=== PATIENT | male | born 1995 | race Caucasian/White ===

== ENCOUNTER 2018-01-21 17:54 | Emergency (ER) | payer BC, OTHER ==
--- NOTE | 2018-01-21 18:49 | UC ---
Throat Pain/Nasal Olegario HPI - HPI Summary HPI Summary: This is a 22-year-old male with a 3 day history of fever or chills mild headache and sore throat. He has been able to tolerate both foods and liquids despite his sore throat. No nausea vomiting or diarrhea. He denies any abdominal pain. He has never had mononucleosis. He has not missed any work despite his illness. - History of Current Complaint Chief Complaint: UCGeneralIllness Stated Complaint: SORE THROAT/FEVER Time Seen by Provider: 01/21/18 18:48 Hx Obtained From: Patient Onset/Duration: Gradual Onset, Lasting Days Severity: Severe Pain Intensity: 7 Pain Scale Used: 0-10 Numeric - Epiglottits Risk Factors Epiglottis Risk Factors: Negative - Allergies/Home Medications Allergies/Adverse Reactions: Allergies Allergy/AdvReac Type Severity Reaction Status Date / Time No Known Allergies Allergy Verified 01/21/18 18:13 Home Medications: Home Medications Ibuprofen 400 mg PO Q8H 01/21/18 [History Confirmed 01/21/18] PMH/Surg Hx/FS Hx/Imm Hx Previously Healthy: Yes - Surgical History Surgical History: None - Family History Known Family History: Positive: Cardiac Disease - Social History Alcohol Use: Occasionally Substance Use Type: None Smoking Status (MU): Never Smoked Tobacco Review of Systems Constitutional: Fever, Chills Skin: Negative Eyes: Negative ENT: Sore Throat Respiratory: Negative Cardiovascular: Negative Gastrointestinal: Negative Genitourinary: Negative Motor: Negative Neurovascular: Negative Musculoskeletal: Negative Neurological: Negative Psychological: Negative Is Patient Immunocompromised?: No All Other Systems Reviewed And Are Negative: Yes Physical Exam Triage Information Reviewed: Yes Appearance: Well-Appearing, No Pain Distress, Well-Nourished Vital Signs: Initial Vital Signs Temp 103.1 F 01/21/18 18:10 Pulse 96 01/21/18 18:10 Resp 16 01/21/18 18:10 BP 164/90 01/21/18 18:10 Pulse Ox 99 01/21/18 18:10 Vital Signs Reviewed: Yes Eyes: Positive: Conjunctiva Clear ENT: Positive: Hearing grossly normal, Pharyngeal erythema, Tonsillar swelling, Tonsillar exudate, Uvula midline. Negative: Nasal congestion, Nasal drainage, Trismus, Muffled voice, Hoarse voice, Sinus tenderness Dental Exam: Normal Neck: Positive: Supple, Nontender, Enlarged Nodes @ - ant cervical Respiratory: Positive: Lungs clear, Normal breath sounds, No respiratory distress, No accessory muscle use Cardiovascular: Positive: RRR, No Murmur Abdomen Description: Positive: Nontender, No Organomegaly. Negative: CVA Tenderness (R), CVA Tenderness (L) Bowel Sounds: Positive: Present Musculoskeletal: Positive: ROM Intact, No Edema Neurological: Positive: Alert Psychological Exam: Normal Skin Exam: Normal Diagnostics - Laboratory Diagnostic Studies Completed/Ordered: strep (-) Throat Pain/Nasal Course/Dx - Differential Dx/Diagnosis Provider Diagnoses: acute exudative tonsillitis Discharge - Sign-Out/Discharge Documenting (check all that apply): Discharge/Admit/Transfer - Discharge Plan Condition: Stable Disposition: HOME Prescriptions: Cephalexin CAP* [Keflex CAP*] 500 mg PO BID #20 cap Patient Education Materials: Tonsillitis (ED) Referrals: Bambi Panchal PA [Primary Care Provider] - Additional Instructions: rest fluids tylenol and/or advil as needed for pain recheck for worsening symptoms IF NOT BETTER IN 4 DAYS PLEASE GET RECHECKED as discussed failure to improved could mean you have a viral tonsillitis like MONO - Billing Disposition and Condition Condition: STABLE Disposition: Home
== END 2018-01-21 19:01 | disposition home or self-care (01) ==
LOC: UCCORT 17:54
DX: J03.90 Acute tonsillitis, unspecified (principal)
CPT/HCPCS: 87651; 99202; G0463

== ENCOUNTER 2018-10-20 18:31 | Emergency (ER) | payer OTHER ==
[2018-10-20 19:16] VITALS: BP 161/85
--- NOTE | 2018-10-20 19:53 | ED ---
Lower Extremity - HPI Summary HPI Summary: 23 yr old male with lump in the left groin muscle fold area. Onset over the weekend. It hurts only when he pushes on it. No pain in scrotum, no pain in testicles. No change in BM. No trouble urination. The patient denies pain presently. He first noticed it after weight lifting, but he never had any pain during the lift, never felt a strain or bulge. - History of Current Complaint Chief Complaint: Kady Stated Complaint: PAINFUL LUMP LEFT INNER THIGH Time Seen by Provider: 10/20/18 19:31 Pain Intensity: 0 - Allergies/Home Medications Allergies/Adverse Reactions: Allergies Allergy/AdvReac Type Severity Reaction Status Date / Time No Known Allergies Allergy Verified 10/20/18 19:08 PMH/Surg Hx/FS Hx/Imm Hx - Surgical History Surgery Procedure, Year, and Place: left wrist sx--2018 Infectious Disease History: No Infectious Disease History: Denies: Traveled Outside the [place] in Last 30 Days - Family History Known Family History: Positive: Cardiac Disease - Social History Alcohol Use: Rare Substance Use Type: Reports: None Smoking Status (MU): Never Smoked Tobacco Review of Systems Constitutional: Negative Positive: Other - left groin bulge All Other Systems Reviewed And Are Negative: Yes Physical Exam Triage Information Reviewed: Yes Vital Signs On Initial Exam: Initial Vitals Temp Pulse Resp BP Pulse Ox 98.2 F 81 16 161/85 100 10/20/18 19:09 10/20/18 19:09 10/20/18 19:09 10/20/18 19:09 10/20/18 19:09 Vital Signs Reviewed: Yes Appearance: Positive: Well-Appearing, No Pain Distress Skin: Positive: Warm, Skin Color Reflects Adequate Perfusion Head/Face: Positive: Normal Head/Face Inspection ENT: Positive: Normal ENT inspection Neck: Positive: Nontender Respiratory/Lung Sounds: Positive: Clear to Auscultation, Breath Sounds Present Cardiovascular: Positive: RRR Abdomen Description: Positive: Nontender. Negative: Distended Male Genital Exam: Positive: No Hernia, Other - the left groin area is with a small dime size bulge that is not red. It is not near the femoral canal area and not near inguinal. It is low down and does not seem to be filled with any bowel. may be a localized muscle bulge.. Negative: Inguinal Tenderness, Scrotum Tenderness (R), Scrotum Tenderness (L), Testicular Tenderness (R), Testicular Tenderness (L) Musculoskeletal: Positive: Strength/ROM Intact. Negative: Edema Left, Edema Right Neurological: Positive: Sensory/Motor Intact, Alert, Oriented to Person Place, Time, CN Intact II-III, Normal Gait, Speech Normal Diagnostics - Vital Signs Vital Signs Temp Pulse Resp BP Pulse Ox 10/20/18 19:09 98.2 F 81 16 161/85 100 - Laboratory Lab Statement: Any lab studies that have been ordered have been reviewed, and results considered in the medical decision making process. Lower Extremity Course/Dx - Course Course Of Treatment: 23 yr old with left groin muscle strain. Plan referral to general surgery and pmd for follow up. - Diagnoses Provider Diagnoses: Groin strain, Hypertension Discharge - Sign-Out/Discharge Documenting (check all that apply): Patient Departure All imaging exams completed and their final reports reviewed: No Studies - Discharge Plan Condition: Good Disposition: HOME Patient Education Materials: Groin Strain (ED), Hypertension (ED) Referrals: Bambi Pnachal PA [Primary Care Provider] - 1 Day Isidoro Lo MD [Medical Doctor] - 1 Day - Billing Disposition and Condition Condition: GOOD Disposition: Home
== END 2018-10-20 20:00 | disposition home or self-care (01) ==
LOC: UCCORT 18:31
DX: S76.912A Strain of unspecified muscles, fascia and tendons at thigh level, left thigh, initial encounter (principal); I10 Essential (primary) hypertension; X50.0XXA Overexertion from strenuous movement or load, initial encounter; Y93.89 Activity, other specified; Y92.9 Unspecified place or not applicable
CPT/HCPCS: 99211; G0463

== ENCOUNTER 2018-12-02 19:14 | Emergency (ER) | payer OTHER ==
[2018-12-02 19:40] VITALS: BP 158/79
[2018-12-02] MEDS ORDERED: DOXYcycline CAP(*) 100 MG PO ONE (19:47)
--- NOTE | 2018-12-02 19:53 | ED ---
Skin Complaint - HPI Summary HPI Summary: 23 yr old male with the complaint of tick left side rib cage. 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 He noticed a tick about an hour ago, removed the body, but wants head taken out. No other medical problems. he showed me a picture of the tick body removed and it was not engorged. It was small. - History of Current Complaint Chief Complaint: UCSkin Time Seen by Provider: 12/02/18 19:40 Stated Complaint: TICK Pain Intensity: 0 - Allergy/Home Medications Allergies/Adverse Reactions: Allergies Allergy/AdvReac Type Severity Reaction Status Date / Time No Known Allergies Allergy Verified 12/02/18 19:38 Home Medications: Home Medications NK [No Home Medications Reported] 12/02/18 [History Confirmed 12/02/18] PMH/Surg Hx/FS Hx/Imm Hx - Surgical History Surgery Procedure, Year, and Place: left wrist sx--2018 Infectious Disease History: No Infectious Disease History: Denies: Traveled Outside the [place] in Last 30 Days - Family History Known Family History: Positive: Cardiac Disease - Social History Occupation: Employed Full-time Alcohol Use: Rare Substance Use Type: Reports: None Smoking Status (MU): Never Smoked Tobacco Review of Systems Constitutional: Negative Positive: Other - tick left chest wall All Other Systems Reviewed And Are Negative: Yes Physical Exam Triage Information Reviewed: Yes Vital Signs On Initial Exam: Initial Vitals Temp Pulse Resp BP Pulse Ox 98.6 F 55 16 158/79 99 12/02/18 19:36 12/02/18 19:36 12/02/18 19:36 12/02/18 19:36 12/02/18 19:36 Vital Signs Reviewed: Yes Appearance: Positive: Well-Appearing, No Pain Distress Skin: Positive: Warm, Other - tick head on left side chest wall. No erythema, no erythema migrains. Eyes: Positive: EOMI, DEDRICK Neck: Positive: Nontender Respiratory/Lung Sounds: Positive: Clear to Auscultation, Breath Sounds Present Cardiovascular: Positive: RRR Abdomen Description: Negative: Distended Musculoskeletal: Positive: Strength/ROM Intact Neurological: Positive: Sensory/Motor Intact, Alert, Oriented to Person Place, Time, CN Intact II-III, Normal Gait, Speech Normal Psychiatric: Positive: Normal Procedures - Procedure Summary Procedure Summary: The tick head was easily removed using steril forceps from the left chest wall. He tolerated this well, and no residual FB present. Diagnostics - Vital Signs Vital Signs Temp Pulse Resp BP Pulse Ox 12/02/18 19:36 98.6 F 55 16 158/79 99 - Laboratory Lab Statement: Any lab studies that have been ordered have been reviewed, and results considered in the medical decision making process. Course/Dx - Course Course Of Treatment: 23 yr old with tick head removed, and prophylaxis with doxy 200mg. FU with pMD - Diagnoses Provider Diagnoses: Hypertension, Tick bite Discharge - Sign-Out/Discharge Documenting (check all that apply): Patient Departure All imaging exams completed and their final reports reviewed: No Studies - Discharge Plan Condition: Good Disposition: HOME Patient Education Materials: Hypertension (ED), Tick Bite (ED) Referrals: Bambi Panchal PA [Primary Care Provider] - 2 Days - Billing Disposition and Condition Condition: GOOD Disposition: Home
== END 2018-12-02 19:56 | disposition home or self-care (01) ==
LOC: UCCORT 19:14
DX: S20.362A Insect bite (nonvenomous) of left front wall of thorax, initial encounter (principal); W57.XXXA Bitten or stung by nonvenomous insect and other nonvenomous arthropods, initial encounter; Y93.H2 Activity, gardening and landscaping; Y92.017 Garden or yard in single-family (private) house as the place of occurrence of the external cause; I10 Essential (primary) hypertension
CPT/HCPCS: 99212; A9270-GY; G0463